=== PATIENT | female | born 1980 | race Caucasian/White ===

== ENCOUNTER 2018-12-28 11:10 | Day surgery (SDC) | payer SELFPAY ==
[2018-12-28] VITALS (7 sets, daily range): BP systolic 128–146; BP diastolic 67–111; PULSE 71–91; RESP 15–18; TEMP 36.1–36.6; O2SAT 98–100
--- NOTE | 2018-12-28 12:25 | ED.VIS.GEN ---
History of Present Illness Chief Complaint: Wound Check Informant: Patient Onset: Today Context: Sudden Onset Timing: Continuous Quality: Pain and swelling dorsum left hand Location: Dorsum left hand Current Severity: Moderate Maximum Severity: Severe Worsened by: Use of left hand Relieved by: Nothing Associated Symptoms: Pain Narrative: Patient is a 38-year-old [id number] woman who presents with laceration dorsum left hand. She was initially seen at [facility]. The wound was sutured. She states 5 minutes after leaving ER her hand swelled and she complains of severe pain. Denies paresthesia, anesthesia motors. Movement of her digits or hand causes increased pain. She is on no anticoagulant. She has no sniffing a past medical history. She does smoke. Recreational alcohol use. Immunization up-to-date. Prior similar symptoms: Yes Recent Illness/Hospitalization: Yes - Past Medical History (1) No significant past medical history Status: Acute Past Medical History - Allergies and Home Meds Allergies/Adverse Reactions: Allergies sulfamethoxazole [From Bactrim] Adverse Reaction (Verified 12/28/18 11:14) Nausea trimethoprim [From Bactrim] Adverse Reaction (Verified 12/28/18 11:14) Nausea Primary Care Physician: Care Physician,No Primary [Primary Care Provider] - Prior records reviewed: No Lives: Spouse/ Significant Other Smoking Status: Current every day smoker Alcohol: Occasional Drugs: None Review of Systems General: Denies: Chills, Fever, Malaise, Sweats Musculoskeletal: Reports: Swelling, Extremity Pain. Denies: Myalgias, Arthralgias, Neck pain, Back pain Skin: Reports: Wounds. Denies: Rash, Abscess Neurological: Denies: Weakness, Parasthesia, Numbness Psych: Denies: Depression, Anxiety Hematologic: Denies: Easy bruising, Easy bleeding Allergy: Denies: Uticaria, Swelling of the mouth Physical Exam Vital Signs/Narrative: Vital Signs Temp Pulse Resp BP Pulse Ox 12/28/18 11:11 97.9 F 91 18 141/111 H 98 Inital Vital Signs reviewed: Yes General: Well nourished, Well developed, Acute Distress Head: Normocephalic, Atraumatic Eyes: Perrl, EOMI. Negative for: Pale conjunctiva, Scleral icterus, - ENT: Moist mucous membranes, No rhinorrhea Neck: Supple, Nontender, No lymphadenopathy, No JVD Cardiovascular: Regular rate, Regular rhythm, No murmurs, Normal S1, Normal S2 Respiratory: No distress, CTA bilaterally, Chest nontender Abdomen: Soft, Nontender, Nondistended, Normal bowel sounds Extremities: No edema, Tenderness - The dorsum of the left hand is swollen and tenting. Capillary refill in the thumb and fingers is normal. Sensation is normal. She has pain with passive flexion or extension of the index, long and ring finger. The extensor and decide and extensor commonest tendon is functionally intact. Neurological: Alert, Oriented x3, Cranial nerves II-XII grossly intact, Normal Strength, Normal Sensation Psychological: Normal affect Diagnostic/Tx/Re-eval - Medical Decision Making Patient presents with pain secondary to injury initially cared for in [facility]. Concern patient has arterial bleeding from injury to intrinsic muscles. Contacted Dr. Vincent Davila. He informed me he is leaving [facility] for vacation with family. He recommended transfer to [facility] if no other orthopedic surgeon was available for repair. Case discussed with Dr.Joseph Roberts. Plan is to OR. Basic metabolic panel, CBC and test were ordered. He states he will perform general anesthesia. He was informed patient has not eaten since last night nor she had anything to drink. ED Disposition - Plan for ED Patient: Diagnosis: Laceration of hand with complication Referrals: Care Physician,No Primary [Primary Care Provider] -
--- NOTE | 2018-12-28 12:30 | ED.DCSUM_ITS ---
History of Present Illness Chief Complaint: Wound Check Informant: Patient Onset: Today Context: Sudden Onset Timing: Continuous Quality: Pain and swelling dorsum left hand Location: Dorsum left hand Current Severity: Moderate Maximum Severity: Severe Worsened by: Use of left hand Relieved by: Nothing Associated Symptoms: Pain Narrative: Patient is a 38-year-old [id number] woman who presents with laceration dorsum left hand. She was initially seen at [facility]. The wound was sutured. She states 5 minutes after leaving ER her hand swelled and she complains of severe pain. Denies paresthesia, anesthesia motors. Movement of her digits or hand causes increased pain. She is on no anticoagulant. She has no sniffing a past medical history. She does smoke. Recreational alcohol use. Immunization up-to-date. Prior similar symptoms: Yes Recent Illness/Hospitalization: Yes - Past Medical History (1) No significant past medical history Status: Acute Past Medical History - Allergies and Home Meds Allergies/Adverse Reactions: Allergies sulfamethoxazole [From Bactrim] Adverse Reaction (Verified 12/28/18 11:14) Nausea trimethoprim [From Bactrim] Adverse Reaction (Verified 12/28/18 11:14) Nausea Primary Care Physician: Care Physician,No Primary [Primary Care Provider] - Prior records reviewed: No Lives: Spouse/ Significant Other Smoking Status: Current every day smoker Alcohol: Occasional Drugs: None Review of Systems General: Denies: Chills, Fever, Malaise, Sweats Musculoskeletal: Reports: Swelling, Extremity Pain. Denies: Myalgias, Arthralgias, Neck pain, Back pain Skin: Reports: Wounds. Denies: Rash, Abscess Neurological: Denies: Weakness, Parasthesia, Numbness Psych: Denies: Depression, Anxiety Hematologic: Denies: Easy bruising, Easy bleeding Allergy: Denies: Uticaria, Swelling of the mouth Physical Exam Vital Signs/Narrative: Vital Signs Temp Pulse Resp BP Pulse Ox 12/28/18 11:11 97.9 F 91 18 141/111 H 98 Inital Vital Signs reviewed: Yes General: Well nourished, Well developed, Acute Distress Head: Normocephalic, Atraumatic Eyes: Perrl, EOMI. Negative for: Pale conjunctiva, Scleral icterus, - ENT: Moist mucous membranes, No rhinorrhea Neck: Supple, Nontender, No lymphadenopathy, No JVD Cardiovascular: Regular rate, Regular rhythm, No murmurs, Normal S1, Normal S2 Respiratory: No distress, CTA bilaterally, Chest nontender Abdomen: Soft, Nontender, Nondistended, Normal bowel sounds Extremities: No edema, Tenderness - The dorsum of the left hand is swollen and tenting. Capillary refill in the thumb and fingers is normal. Sensation is normal. She has pain with passive flexion or extension of the index, long and ring finger. The extensor and decide and extensor commonest tendon is functionally intact. Neurological: Alert, Oriented x3, Cranial nerves II-XII grossly intact, Normal Strength, Normal Sensation Psychological: Normal affect Diagnostic/Tx/Re-eval - Medical Decision Making Patient presents with pain secondary to injury initially cared for in [facility]. Concern patient has arterial bleeding from injury to intrinsic muscles. Contacted Dr. Vincent Davila. He informed me he is leaving [facility] for vacation with family. He recommended transfer to [facility] if no other orthopedic surgeon was available for repair. Case discussed with Dr.Joseph Roberts. Plan is to OR. Basic metabolic panel, CBC and test were ordered. He states he will perform general anesthesia. He was informed patient has not eaten since last night nor she had anything to drink. ED Disposition - Plan for ED Patient: Diagnosis: Laceration of hand with complication Referrals: Care Physician,No Primary [Primary Care Provider] -
[2018-12-28 13:09] LABS: Hematocrit 42.3 % (37-47); Hemoglobin 13.8 g/dl (12.0-15.0); Mean Corp Hgb Conc 32.6 g/gl (32-36); Mean Corpuscular Hgb 31.4 pg (27.0-32.0); Mean Corpuscular Volume 96.4 fL (81-99); Mean Platelet Vol. 9.7 fl (6.2-12.0); Platelet Count 326 K/mm3 (150-450); RBC Distribution Width CV 13.3 % (11.6-14.6); RBC Distribution Width SD 46.9 fl (35.1-43.9); Red Blood Count 4.39 M/mm3 (4.2-5.4); White Blood Count 10.7 K/mm3 (4.4-11.0)
[2018-12-28 13:10] LABS: Scan Indicated on CBC? Y/N NO
[2018-12-28 13:18] LABS: Anion Gap 4 (5-15); BUN 10 mg/dL (7-18); BUN/Creat Ratio 12.3 RATIO (10-20); Calcium,Total 8.6 mg/dL (8.5-10.1); Chloride 105 mmol/L (98-107); Creatinine, Serum 0.81 mg/dL (0.55-1.02); EST Glomerular Filtration Rate 85 mL/min (>60); Est Glom Filt Rate - Afr Amer 102 mL/min (>60); Estimated Creatinine Clearance 82.51 ml/min; Glucose 89 mg/dL (74-106); Potassium 3.5 mmol/L (3.5-5.1); Sodium Level 138 mmol/L (136-145)
--- NOTE | 2018-12-28 13:30 | PCM.HP.STD ---
History of Present Illness Date of Admission: 12/28/18 Chief Complaint: Laceration dorsum left hand The patient is a 38 year old F using a steak knife to remove his zip ties 8:30 AM slipped cut the back of her hand. Proceeded to [place] emergency room where primary closure was performed and ibuprofen was given patient then developed hematoma and drainage did return to the emergency room and a pressure dressing was applied she continued to have drainage and saturation of dressing and proceeded to [facility] emergency room. She is right-hand dominant. She is able to extend and flex the digits Past Medical History Past Medical History (Chronic Problems): Chronic Problems (Last Reviewed 12/28/18 @ 13:37 by DINA Riddle) Hypertension (Chronic) noncompliant with medications Medical History: Medical History (Last Reviewed 12/28/18 @ 13:37 by DINA Riddle) Smoking (Acute) F17.200 Nephrolithiasis (Acute) N20.0 Hypertension (Chronic) I10 noncompliant with medications Allergies sulfamethoxazole [From Bactrim] Adverse Reaction (Verified 12/28/18 11:14) Nausea trimethoprim [From Bactrim] Adverse Reaction (Verified 12/28/18 11:14) Nausea Home Medications: Ambulatory Orders Medication Instructions Recorded NK 12/28/18 Surgical History: Surgical History (Last Updated 12/28/18 @ 13:34 by DINA Riddle) delivery delivered (Acute) O82 x 3 Breast abscess N61.1 right Surgical History: - - x3 breast abscess right Lives: Spouse/ Significant Other Smoking Status: Current every day smoker Alcohol: Occasional Drugs: None Review of Systems Constitutional: Denies: Anorexia, Chills, Fever Cardiovascular: Denies: Chest Pain, Chest Pressure Respiratory: Denies: Shortness of Breath Gastrointestinal: Denies: Abdominal Pain VTE Information - Inpt Only VTE Present on Admission: No VTE Mechan Device Prophylaxis: SCD's Patient Problems: Active and Suspected Problems (Last Reviewed 12/28/18 @ 13:37 by DINA Riddle) No significant past medical history (Acute) Laceration of hand with complication (Acute) Smoking (Acute) delivery delivered (Acute) x 3 Nephrolithiasis (Acute) - Physical Exam General: Alert, Oriented x3, Cooperative Extremities: - - Pressure dressing left hand cool with slightly discolored fingers 3+ capillary refill likely secondary to tightness of pressure bandage. Intact sensation to light touch wiggling fingers Vital Signs Temp Pulse Resp BP Pulse Ox 97 F L 71 15 132/67 H 98 12/28/18 13:12 12/28/18 13:12 12/28/18 13:12 12/28/18 13:12 12/28/18 11:11 Oxygen Delivery Method Room Air Weight: 120 lb Body Mass Index (BMI) 20.0 Laboratory Tests Past 24 Hrs 12/28/18 12/28/18 12/28/18 12:55 12:55 12:55 WBC 10.7 RBC 4.39 Hgb 13.8 Hct 42.3 MCV 96.4 MCH 31.4 MCHC 32.6 RDW 13.3 RDW Differential 46.9 H Plt Count 326 MPV 9.7 Sodium 138 Potassium 3.5 Chloride 105 Carbon Dioxide 29.0 Anion Gap 4 L BUN 10 Creatinine 0.81 Estim Creat Clear Calc 82.51 Est GFR (MDRD) Af Amer 102 Est GFR (MDRD) Non-Af 85 BUN/Creatinine Ratio 12.3 Glucose 89 Calcium 8.6 Serum , Qual NEGATIVE Assessment/Plan All Active Problems (Last Reviewed 12/28/18 @ 13:37 by IDNA Riddle) No significant past medical history (Acute) Laceration of hand with complication (Acute) Smoking (Acute) delivery delivered (Acute) Nephrolithiasis (Acute) Laceration dorsum left hand with expanding hematoma Plan for irrigation debridement cauterization surgery as indicated exploration of extensor tendons Antibiotics 2 g Ancef preop
[2018-12-28 13:47] LABS: Internal QC Validated? YES +Cl - CLEAR BKGD; Pregnancy, Serum, hCG Quali. NEGATIVE Negative
[2018-12-28] MEDS: Cefazolin 2 GM in 0.9% Normal Saline 100 ML IV (14:01)
[2018-12-28] MEDS: Bupiv/Epi 0.25% 30 ML Vial (14:31)
--- NOTE | 2018-12-28 14:43 | DCINST_ITS ---
Discharge Diet: No Restrictions Additional Activity Instructions:: Strict ice and elevation for 72 hours. Do not lift grab or pull with left hand or upper extremity. Leave dressing on clean dry and intact until follow-up visit Monday. Finger range of motion is allowed. Call your doctor if you observe: Fever of 101 or Higher Allergies/Adverse Reactions: Allergies sulfamethoxazole [From Bactrim] Adverse Reaction (Verified 12/28/18 11:14) Nausea trimethoprim [From Bactrim] Adverse Reaction (Verified 12/28/18 11:14) Nausea Medications to take at Discharge Oxycodone HCl/Acetaminophen [Percocet 5/325] 1 - 2 tablet PO Q4H PRN PRN 5 Days #20 tablet 12/28/18 The following prescriptions were given: Oxycodone HCl/Acetaminophen [Percocet 5/325] 1 - 2 tablet PO Q4H PRN PRN 5 Days #20 tablet PRN Reason: Pain Primary Care Physician: Care Physician,No Primary [Primary Care Provider] - Test Results: Test results from this visit will be discussed in further detail at your follow- up appointment, if applicable. Please Follow Up With: Michele Arvizu, - Call for appointment When: 12/31/2018
--- NOTE | 2018-12-28 14:44 | PCM.OPRPT ---
Report of Operation Date of Procedure: 12/28/18 Description of Surgical Findings:: Preoperative diagnosis: Laceration dorsum left hand with hematoma Postoperative diagnosis: Same Procedure: Irrigation debridement and evacuation of hematoma and exploration of wound Anesthesia: General EBL: 5 cc Complications: None Condition: Stable to PACU Indication for procedure: This is a 38-year-old female patient who sustained a laceration to the dorsum of her left hand while using a steak knife to release zip ties she slipped with a knife sustaining the injury. This happened at 8:30 AM she did proceed to [place] emergency room where she had a primary closure and was put on ibuprofen. She had expanding hematoma with saturation of dressing return to the emergency room department and it pressure dressing was applied. She continued to have saturation and proceeded to [facility] emergency room the wound was explored by the emergency room physician was felt that cauterization would be required and I was consulted. risk benefits and alternatives were reviewed including risk of bleeding infection nerve, artery, bone, tissue damage, blood clot need for further surgery and continued pain. Procedure: Patient was met the preoperative holding area once again the operative extremity was identified by both patient and physician and was marked. Patient was brought back to the operating room in a wheeled cart and transferred to the operating table in the supine position. Anesthesia was started. A well-padded tourniquet was placed in the left upper extremity. Patient was prepped and draped in the usual sterile fashion and a timeout was called to ensure the proper patient procedure and extremity were being contemplated. The wound was explored there was hematoma which was evacuated the laceration was extended proximally approximately 1 cm and skin hooks were used and elevation of skin flaps and the wound was explored the extensor tendon to the in index finger was intact there was muscular damage involving the adductor pollicis the tourniquet was let down there was a bleeding vessel which was cauterized. The wound was thoroughly irrigated with a Betadine rinse followed by's sterile saline. A thrombin soaked 1 x 1 cm Gelfoam was placed in the wound the wound. Closure of the wound with 4-0 Prolene vertical mattress stitches. Dressing applied in the form of Xeroform 4 x 4's ABD web roll and an Prasanth wrap. All counts were correct no intraoperative complications patient tolerated the procedure well was transferred to the PACU in stable condition Type of Anesthesia:: General
--- NOTE | 2018-12-28 14:50 | OP.PCM_ITS ---
Report of Operation Date of Procedure: 12/28/18 Description of Surgical Findings:: Preoperative diagnosis: Laceration dorsum left hand with hematoma Postoperative diagnosis: Same Procedure: Irrigation debridement and evacuation of hematoma and exploration of wound Anesthesia: General EBL: 5 cc Complications: None Condition: Stable to PACU Indication for procedure: This is a 38-year-old female patient who sustained a laceration to the dorsum of her left hand while using a steak knife to release zip ties she slipped with a knife sustaining the injury. This happened at 8:30 AM she did proceed to [place] emergency room where she had a primary closure and was put on ibuprofen. She had expanding hematoma with saturation of dressing return to the emergency room department and it pressure dressing was applied. She continued to have saturation and proceeded to [facility] emergency room the wound was explored by the emergency room physician was felt that cauterization would be required and I was consulted. risk benefits and alternatives were reviewed including risk of bleeding infection nerve, artery, bone, tissue damage, blood clot need for further surgery and continued pain. Procedure: Patient was met the preoperative holding area once again the operative extremity was identified by both patient and physician and was marked. Patient was brought back to the operating room in a wheeled cart and transferred to the operating table in the supine position. Anesthesia was start ed. A well-padded tourniquet was placed in the left upper extremity. Patient was prepped and draped in the usual sterile fashion and a timeout was called to ensure the proper patient procedure and extremity were being contemplated. The wound was explored there was hematoma which was evacuated the laceration was extended proximally approximately 1 cm and skin hooks were used and elevation of skin flaps and the wound was explored the extensor tendon to the in index finger was intact there was muscular damage involving the adductor pollicis the tourniquet was let down there was a bleeding vessel which was cauterized. The wound was thoroughly irrigated with a Betadine rinse followed by's sterile saline. A thrombin soaked 1 x 1 cm Gelfoam was placed in the wound the wound. Closure of the wound with 4-0 Prolene vertical mattress stitches. Dressing applied in the form of Xeroform 4 x 4's ABD web roll and an Prasanth wrap. All counts were correct no intraoperative complications patient tolerated the procedure well was transferred to the PACU in stable condition Type of Anesthesia:: General
== END 2018-12-28 15:53 | disposition home or self-care (01) ==
LOC: ED 12:46 → SDC 13:11 → AC 13:15
PROVIDERS: Emergency Provider Emergency Medicine; Referring Provider Orthopaedic Surgery; Visit Provider Orthopaedic Surgery
PROC: (CPT 10140; principal; 2018-12-28 13:15)
DX: S61.412A Laceration without foreign body of left hand, initial encounter (principal); S60.222A Contusion of left hand, initial encounter; W26.0XXA Contact with knife, initial encounter; Y93.89 Activity, other specified; Y92.9 Unspecified place or not applicable; I10 Essential (primary) hypertension; F17.200 Nicotine dependence, unspecified, uncomplicated; Z91.14 Patient's other noncompliance with medication regimen
CPT/HCPCS: 10140; 80048; 84703; 85027; 99284; J7120; J2405

== ENCOUNTER 2023-02-26 12:58 | Emergency (ER) | payer SELFPAY ==
[2023-02-26 12:59] VITALS: BP 154/106; PULSE 103; RESP 18; TEMP 37.1; O2SAT 100; BMI 19.9
--- NOTE | 2023-02-26 13:40 | US_ITS ---
STUDY: ULTRASOUND TRANSVAGINAL CLINICAL: Female, 42 years old. vaginal bleeding TECHNIQUE: Transvaginal COMPARISON: None. FINDINGS: Normal uterine size measuring 9.7 x 6.4 x 5.5 cm in maximal craniocaudal dimension. 3.5 cm heterogeneous mass of the anterior body of uterus consistent with a submucosal fibroid.. Normal endometrial thickness measuring 5 mm. There are no endometrial masses, and there is no fluid in the endometrial cavity. Normal uterine cervix. Normal right ovary, measuring 2.7 x 2.2 x 2.3 cm. There are multiple follicles without a dominant cyst. Normal left ovary, measuring 4.5 x 2.3 x 2.9 cm. 2.5 cm dominant follicle the left ovary.. There is no free fluid in the pelvis. Polycystic ovary disease: No. US/Transvaginal Non- IMPRESSION: Enlarged fibroid uterus with a 3.5 cm submucosal fibroid in the anterior body the uterus. Electronically Signed: Skip Ireland MD at 16:06 EDT ,
[2023-02-26] MEDS: 0.9% Normal Saline 1,000 ML 1000 ML IV (14:01)
[2023-02-26] MEDS: Morphine 4 MG/ML Syringe IV (14:01)
[2023-02-26] MEDS: Ondansetron 4 MG/2 ML Vial IV (14:02)
[2023-02-26 14:24] LABS: Internal QC Validated? YES +Cl - CLEAR BKGD; Pregnancy, Serum, hCG Quali. NEGATIVE Negative
--- NOTE | 2023-02-26 14:31 | EKG12_ITS ---
Test Reason : SYNCOPE Blood Pressure : / mmHG Vent. Rate : 067 BPM Atrial Rate : 067 BPM P-R Int : 136 ms QRS Dur : 080 ms QT Int : 396 ms P-R-T Axes : 066 065 060 degrees QTc Int : 418 ms Normal sinus rhythm Normal ECG Confirmed by MIGUEL ÁNGEL RODARTE, REBECCA ([id number]), digital editor MYKE GUEVARA ([id number]) on 02/27/2023 1:26:03 PM Referred By: Confirmed By:REBECCA DEL ROSARIO MD
[2023-02-26 14:34] LABS: Bacteria 0 SEEN /hpf (None Seen); Mucous, Urine 0 SEEN /hpf (<or=2+); Squamous Epithelial Cells - UA 0 SEEN /hpf (5-10)
[2023-02-26 14:42] LABS: Color, Urine Yellow (Yellow); Glucose, Dipstick Normal (Normal); Ketone-Dipstick 5 mg/dl (Negative); Leukocyte Esterase-Dipstick 25 /ul (Negative); Nitrite-Dipstick Negative (Negative); Occult Blood-Urine 250 /ul (Negative); Protein-Dipstick 15 mg/dl (Negative); Specific Gravity, Urine 1.025 (1.002-1.030); Urine Bilirubin Dipstick Negative (Negative); Urine Clarity Clear (Clear); Urine Urobilinogen Normal (Normal)
[2023-02-26 14:46] LABS: Absolute Lymphocyte Count 0.97 X10^3/uL (0.83-4.51); Absolute Neutrophil Count 5.1 X10^3/uL (2.0-7.7); Basophil# 0.07 X10^3/uL; Eosinophil# 0.19 X10^3/uL; Eosinophils% 2.8 % (0-5); Hematocrit 37.9 % (37-47); Hemoglobin 11.8 g/dL (12.0-15.0); Lymphocyte # 0.97 X10^3/ul (0.83-4.51); Lymphocyte % 14.1 % (19-41); Mean Corp Hgb Conc 31.1 g/dL (32-36); Mean Corpuscular Hgb 30.6 pg (27.0-32.0); Mean Corpuscular Volume 98.2 fL (81-99); Mean Platelet Vol. 11.2 fl (6.2-12.0); Monocyte# 0.55 X10^3/uL; NRBC Flagged by Analyzer 0 % (0-5); Neutrophil # 5.07 X10^3/uL (2.7-7.7); Neutrophil % 73.8 % (47-70); Platelet Count 289 K/mm3 (150-450); RBC Distribution Width CV 13.2 % (11.6-14.6); RBC Distribution Width SD 47.5 fl (35.1-43.9); Red Blood Count 3.86 M/mm3 (4.2-5.4); White Blood Count 6.9 K/mm3 (4.4-11.0)
[2023-02-26 14:57] LABS: Red Blood Cells-Urine 5-10 SEEN /hpf (0-5); White Blood Cells 0-5 SEEN /hpf (0-5)
--- NOTE | 2023-02-26 15:20 | EDS_ITS ---
HPI HPI - Female History of Present Illness Chief Complaint: Abd Pain Narrative Narrative: 42-year-old female presenting with pelvic pain and vaginal bleeding which is excessive. She states she has a history of endometriosis. She has not had a technical healthcare consultant in a long time. She reports that she has not had pelvic pain until recently. She reports to me on Monday she was at work and started to feel excessive pain which made her pass out. She went to the ER in [place] and she was told she had a UTI and pyelonephritis as well as a kidney stone. She states that she did not have any urinary symptoms. She never really had any flank pain. She just had syncope from pelvic pain. She did have a CT performed which initially she was told was showing pyelonephritis, kidney stones. The patient returned back to the ER over there because she started to have more pain and the ER doctor that saw her then told her that the first person who saw her got it all wrong, and stated that she had uterine fibroids which is likely the cause of the bleeding. She has had heavy bleeding since Monday going through about a tampon an hour. Does not believe she is . No fever or chills. No urinary complaints. No flank pain. She states that she does not have a technical healthcare consultant anymore but was told to go to [place] to get a follow-up ultrasound at the end of the month and then when she gets that she is supposed to try to find a technical healthcare consultant. She reports to me that she does not have any insurance currently. Since the pain increased and she was having bleeding she came to [place] [facility] for assistance. PFSH PFSH Medical History Hypertension Nephrolithiasis Smoking Home Medications tramadol 50 mg tablet 50 mg PO Q8H PRN pain #25 tabs 01/02/19 [Rx Last Taken Unknown] norethindrone acetate 5 mg tablet (Aygestin) 5 mg PO DAILY #90 tabs 02/26/23 [Rx Last Taken Unknown] Allergy/AdvReac Type Severity Reaction Status Date / Time sulfamethoxazole AdvReac Nausea Verified 02/26/23 13:02 [From Bactrim] trimethoprim [From Bactrim] AdvReac Nausea Verified 02/26/23 13:02 Family History Grandmother Cervical cancer Mother Cervical cancer Other Ovarian cancer Surgical History Breast abscess delivery delivered Social History Smoking Status: Current every day smoker tobacco type: cigarettes ROS ROS ED Constitutional Constitutional ED: Denies chills, fever(s) or sweats Eyes Eyes: Denies blurry vision or change in vision ENT ENT ED: Denies ear pain or sore throat Cardiovascular Cardiovascular: Denies chest pain, palpitations or racing heartbeat Respiratory/Chest Respiratory/Chest: Denies cough, dyspnea or sputum Gastrointestinal Gastrointestinal: Reports abdominal pain; Denies constipation, diarrhea, nausea or vomiting Genitourinary Genitourinary ED: Reports other Details: Excessive vaginal bleeding ; Denies dysuria, hematuria or urinary frequency Musculoskeletal Musculoskeletal: Denies arthralgias, myalgias or neck pain Integumentary Denies abscess, Abrasions or rash Neurologic Neurologic: Denies headache(s), paresthesias or weakness Psychiatric Psychiatric: Denies anxiety, depression, suicidal ideation or suicidal thoughts Endocrine Endocrinology: Denies polydipsia or polyuria EXAM Physical Exam Const Vital Signs: 02/26/23 12:59 02/26/23 16:12 Temperature 98.7 F Temperature Source Temporal Pulse Rate 103 H Pulse Rate [Lying] 100 Pulse Rate [Sitting (for 1 minute prior to obtaining)] 62 Pulse Rate [Standing (for 1 minute prior to obtaining)] 63 Respiratory Rate 18 Blood Pressure 154/106 H Blood Pressure [Lying] 157/100 H Blood Pressure [Sitting (for 1 minute prior to obtaining)] 146/107 H Blood Pressure [Standing (for 1 minute prior to obtaining)] 164/100 H Blood Pressure Mean 122 Blood Pressure Mean [Lying] 119 Blood Pressure Mean [Sitting (for 1 minute prior to obtaining)] 120 Blood Pressure Mean [Standing (for 1 minute prior to obtaining)] 121 Pulse Ox 100 Oxygen Delivery Method Room Air General Appearance ED: NAD HEENT Reports moist mucous membranes Eyes PERRL and EOMs intact bilaterally General Eye ED: Negative for pale conjunctiva Chest Wall inspection of chest normal Resp normal respiratory effort Cardio regular rate and regular rhythm GI Palpation: tender suprapubic Back/Spine no CVA tenderness Extremity normal to inspection Neuro oriented x3 and CN's II-XII intact bilaterally Sensorium / Orientation: alert Motor Exam: strength 5/5 throughout Psych mental status grossly normal Skin no rashes or lesions noted MDM MDM MDM Narrative Medical decision making narrative: Patient presenting with dysfunctional uterine bleeding. She was told that he had initially had pyelonephritis and a kidney stone and secondarily was told that she had uterine fibroids based on CT. On both visits to her previous ER visit there was no labs drawn. There is no urinalysis tested. No test. Patient presenting today with pelvic pain and dysfunctional uterine bleeding. Initially she stated she had syncope secondary to the pain. Differe ntial includes dehydration, anemia, dysfunctional uterine bleeding, dysrhythmia, electrolyte abnormalities, dehydration, endometriosis, UTI, pyelonephritis. Patient was typed and screened. Orthostatic negative. EKG was obtained which shows a normal sinus rhythm with a ventricular rate of 67 bpm without sign of ischemic change or ectopy. She was given morphine, Zofran, IV fluids. High-sensitivity troponin will be obtained. CBC was obtained to assess white blood cell count, hemoglobin, platelets. This does show a hemoglobin 11.8 with the last comparison being in 2019 which was about 2 points higher. Renal function and electrolytes within normal limits. LFTs are normal. Urinalysis negative for infection does have blood, however the patient has vaginal bleeding which is likely the source this does not have any flank pain or CVA tenderness. hCG negative. Transvaginal ultrasound shows 3.5 cm uterine fibroid the submucosal layer. This was discussed with the on-call twister doffer for Dr. Lawton. She recommended putting her on Aygestin 5 mg p.o. 3 times daily until the bleeding stops and then twice daily after this for a month. She states that they do offer self-pay packages to patient's and they do try to work with them if they would have insurance. She recommended calling the office to try to help get her seen. Patient will take the Aygestin. She is discharged home in stable condition. Return precautions discussed. Impression: 1. 3.5 cm uterine fibroid 2. Dysfunctional uterine bleeding 3. History of syncope 4. Anemia Lab Data Labs: Laboratory Results - last 24 hr 02/26/23 02/26/23 02/26/23 14:06 14:27 15:24 WBC 6.9 RBC 3.86 L Hgb 11.8 L Hct 37.9 MCV 98.2 MCH 30.6 MCHC 31.1 L RDW Std Deviation 47.5 H RDW Coeff of [place] 13.2 Plt Count 289 MPV 11.2 Immature Gran % (Auto) 0.300 Neut % (Auto) 73.8 H Lymph % (Auto) 14.1 L [place] % (Auto) 8.0 Eos % (Auto) 2.8 Baso % (Auto) 1.0 Absolute Neuts (auto) 5.1 Absolute Lymphs (auto) 0.97 Nucleated RBC % 0 Sodium Cancelled 139 Potassium Cancelled 3.9 Chloride Cancelled 108 H Carbon Dioxide Cancelled 26.0 Anion Gap Cancelled 5 BUN Cancelled 17 Creatinine Cancelled 0.69 Estim Creat Clear Calc Cancelled 95.69 Est GFR (MDRD) Af Amer Cancelled 120 Est GFR (MDRD) Non-Af Cancelled 99 BUN/Creatinine Ratio Cancelled 24.5 H Glucose Cancelled 84 Calcium Cancelled 8.4 L Total Bilirubin Cancelled 0.60 AST Cancelled 14 L ALT Cancelled 18 Alkaline Phosphatase Cancelled 33 L Troponin I High Sens Cancelled 4 Total Protein Cancelled 6.8 Albumin Cancelled 3.6 Globulin Cancelled 3.2 Albumin/Globulin Ratio Cancelled 1.1 Serum , Qual NEGATIVE Urine Color Yellow Urine Clarity Clear Urine pH 5.0 Ur Specific [place] 1.025 Urine Protein 15 H Urine Glucose (UA) Normal Urine Ketones 5 H Urine Occult Blood 250 H Urine Nitrite Negative Urine Bilirubin Negative Urine Urobilinogen Normal Ur Leukocyte Esterase 25 H Urine RBC 5-10 SEEN Urine WBC 0-5 SEEN Ur Squamous Epith Cells 0 SEEN Urine Bacteria 0 SEEN Urine Mucus 0 SEEN Blood Type A POSITIVE Antibody Screen NEGATIVE Radiography Diagnostic Testing: Clinical Impression(s) from Imaging Studies Transvaginal US 02/26/23 13:40 IMPRESSION: Enlarged fibroid uterus with a 3.5 cm submucosal fibroid in the anterior body the uterus. Electronically Signed: Skip Ireland MD at 16:06 EDT , Discharge Plan Triage Chief Complaint: Abd Pain Other Complaint: Vag Bld, Preg ED Provider: Moo Alicia Dx/Rx/DC Orders Instructions: ED Dysfunctional Uterine Bleeding, ED Uterine Fibroids Prescriptions: New norethindrone acetate [Aygestin] 5 mg tablet 5 mg PO DAILY Qty: 90 0RF Rx Instructions: 5 mg p.o. 3 times daily until uterine bleeding stops, then twice daily x1 month No Action tramadol 50 mg tablet 50 mg PO Q8H PRN (Reason: pain) Qty: 25 0RF Rx Instructions: 1-2 tabs po Q 8hrs prn pain Primary Care Provider: Azar Hernandez Referrals: Azar Hernandez MD [Primary Care Provider] - Fatuma Lawton MD [Med Staff - Active Staff] - As soon as possible (Call the office to see about the self-pay packages.) Disposition Disposition: Home, Self Care
[2023-02-26 15:49] LABS: ALB/GLOB Ratio 1.1 RATIO (0.9-2.4); AST(SGOT) 14 U/L (15-37); Alanine Aminotransfer ALT/SGPT 18 U/L (13-56); Albumin, Serum 3.6 g/dL (3.2-5.0); Alkaline Phosphatase 33 U/L (45-117); Anion Gap 5 (5-15); BUN 17 mg/dL (7-18); BUN/Creat Ratio 24.5 RATIO (10-20); Calcium,Total 8.4 mg/dL (8.5-10.1); Chloride 108 mmol/L (98-107); Creatinine, Serum 0.69 mg/dL (0.55-1.02); EST Glomerular Filtration Rate 99 mL/min (>60); Est Glom Filt Rate - Afr Amer 120 mL/min (>60); Estimated Creatinine Clearance 95.69 ml/min; Globulin 3.2 g/dL (2.2-4.2); Glucose 84 mg/dL (74-106); Potassium 3.9 mmol/L (3.5-5.1); Protein, Total 6.8 g/dL (6.4-8.2); Sodium Level 139 mmol/L (136-145); Troponin-I HS 4 pg/mL (3.0-54.0)
[2023-02-26 16:12] VITALS: BP 146/107; BP 157/100; BP 164/100; PULSE 100; PULSE 62; PULSE 63
== END 2023-02-26 16:33 | disposition home or self-care (01) ==
PROVIDERS: Emergency Provider Student in an Organized Health Care Education/Training Program; PCP Family Medicine; Visit Provider Student in an Organized Health Care Education/Training Program
DX: D25.9 Leiomyoma of uterus, unspecified (principal); D64.9 Anemia, unspecified; F17.210 Nicotine dependence, cigarettes, uncomplicated; I10 Essential (primary) hypertension; R55 Syncope and collapse; N93.8 Other specified abnormal uterine and vaginal bleeding; Z87.42 Personal history of other diseases of the female genital tract
CPT/HCPCS: 76830; 80053; 81001; 84484; 84703; 85025; 86850; 86900; 86901; 93005; 96361; 96374; 96375; 99284; J7030; A4216; J2405

== ENCOUNTER → 2023-04-05 | Outpatient (CLI) | payer SELFPAY ==
--- NOTE | 2023-04-05 | EMB_PTH ---
PATIENT: JOSH CALLE LOC: [facility] U#:[id number] AGE/SX: 42/F ROOM: RE04/05/[address]: Dr. Pearl Munoz DO : 1980 BED: DIS: 04/05/2023 SPEC #: [id number] RECD: 04/05/23 13:28 STATUS: GEREMIAS VINCENT #: [id number] PROMISE: 04/05/23 00:[address]: Pearl Munoz DEPT: SURGICAL PATHOLOGY RECD BY: Amando Blackman ENTERED: 04/05/23 13:29 SP TYPE: ENDOM BX/C JEROME DR: Dr. Azar Hernandez MD Tissues: Endometrium, NOS Procedures: Surgery Specimen Level IV HEADER OPERATION: Endometrial biopsy PRE-OP DIAGNOSIS: Menorrhagia TISSUE SUBMITTED: Endometrial lining MICROSCOPIC DIAGNOSIS Endometrial biopsy: Secretory endometrium. SJ:marta 04/06/2023 MICROSCOPIC DESCRIPTION Slides are reviewed. GROSS DESCRIPTION Received is one container labeled with the patient's name and not further designated. The specimen consists of multiple irregular fragments of pink soft tissue that in aggregate measure 2.0 x 1.0 x 0.1 cm. The specimen is totally submitted in one cassette. / SJ:marta 04/05/2023 TC:4 CPT: 34711
[2023-04-10 09:07] LABS: HPV APTIMA, High Risk Negative (Negative)
== END | disposition home or self-care (01) ==
PROVIDERS: PCP Family Medicine; Referring Provider Obstetrics & Gynecology; Visit Provider Obstetrics & Gynecology
DX: N92.0 Excessive and frequent menstruation with regular cycle (principal)
CPT/HCPCS: 87624; 88175; 88305; G0145

== ENCOUNTER → 2024-02-07 | Outpatient (CLI) | payer SELFPAY ==
--- NOTE | 2024-02-07 14:31 | CT_ITS ---
STUDY: CT ABDOMEN AND PELVIS WITH CONTRAST REASON FOR EXAM: Female, 43 years old. chronic appendicitis?, RLQ pain RADIATION DOSAGE (If Supplied By Facility): CTDIvol = ( 9.21 ) mGy, DLP = ( 396.58 ) mGycm TECHNIQUE: Transaxial images were obtained from the dome of the diaphragm to the symphysis pubis with oral contrast. Oral and amp; IV Gastrografin and amp; 100mL Isovue-300 was administered. Sagittal and coronal images were reconstructed. Individualized dose optimization techniques were used for this CT. COMPARISON: Pelvic ultrasound earlier today FINDINGS: The visualized lung bases are unremarkable. The visualized portions of the heart are within normal limits. 1.5 cm round mass of decreased attenuation in the subcapsular anterior segment right lobe of liver with some peripheral globular enhancement likely consistent with a hemangioma. The gallbladder is contracted. Normal spleen. Normal pancreas. Normal bilateral adrenal glands. Normal right kidney. Normal left kidney. Normal visualized stomach. Normal small intestine. Normal colon. There is non-visualization of the appendix. Normal abdominal aorta. Normal inferior vena cava. Normal retroperitoneum. Normal urinary bladder. Normal abdominal wall. Normal osseous structures. CT/Abdomen/Pelvis WITH Contrast IMPRESSION: No acute abnormality. Electronically Signed: Skip Ireland MD at 17:52 EDT ,
--- NOTE | 2024-02-07 14:31 | US_ITS ---
STUDY: ULTRASOUND OF THE FEMALE PELVIS - COMPLETE REASON FOR EXAM: Female, 43 years old. RLQ pain LMP: January 26, 2024. TECHNIQUE: Transabdominal and Transvaginal TECHNICAL QUALITY: Adequate. COMPARISON: Comparison is made with prior study dated February 26, 2023. FINDINGS: The uterus is anteverted and is in a midline position. The uterus measures 9.4 cm x 5.5 cm x 4.5 cm. There is a Nabothian cyst of the cervix. The endometrium measures 7 mm in thickness, and is hyperechoic. There is no demonstrated endometrial mass. 2 fibroids are seen. The larger fibroid measures 3.6 cm x 3.9 cm x 2.9 cm. I.U.D. - The patient does not have an I.U.D. The right ovary is visualized. The right ovary measures 3.2 cm x 2.9 cm x 1.7 cm. Several follicles are seen. The largest measures 2 cm x 1.2 cm x 1.5 cm. There is no visualized right adnexal mass or complex lesion. There is normal arterial and normal venous vascularity. The left ovary is visualized. The left ovary measures 4.1 cm x 2.8 cm x 2.5 cm. There is a 2.4 cm x 2.1 cm x 2.2 cm left ovarian cyst. There is no visualized left adnexal mass or complex lesion. There is normal arterial and normal venous vascularity. There is no fluid in the cul-de-sac. The pre void volume of the bladder was 386 ml. US/Pelvic w/ Transvaginal IMPRESSION: Fibroid uterus. 2.4 cm x 2.1 centimeter by 2.2 cm left ovarian cyst. Electronically Signed: Joey Frank MD at 15:31 EDT ,
[2024-02-07 17:05] LABS: Absolute Lymphocyte Count 1.91 X10^3/uL (0.83-4.51); Absolute Neutrophil Count 6.8 X10^3/uL (2.0-7.7); Basophil# 0.07 X10^3/uL; Basophil% 0.7 % (0-1); Eosinophils% 1.1 % (0-5); Hematocrit 38.3 % (37-47); Hemoglobin 12.3 g/dL (12.0-15.0); Lymphocyte # 1.91 X10^3/ul (0.83-4.51); Lymphocyte % 20.1 % (19-41); Mean Corp Hgb Conc 32.1 g/dL (32-36); Mean Corpuscular Hgb 30.2 pg (27.0-32.0); Mean Corpuscular Volume 94.1 fL (81-99); Mean Platelet Vol. 10.3 fl (6.2-12.0); Monocyte# 0.62 X10^3/uL; Monocyte% 6.5 % (0-10); NRBC Flagged by Analyzer 0 % (0-5); Neutrophil # 6.77 X10^3/uL (2.7-7.7); Neutrophil % 71.2 % (47-70); Platelet Count 278 K/mm3 (150-450); RBC Distribution Width CV 12.6 % (11.6-14.6); RBC Distribution Width SD 43.6 fl (35.1-43.9); Red Blood Count 4.07 M/mm3 (4.2-5.4); White Blood Count 9.5 K/mm3 (4.4-11.0)
[2024-02-07 17:13] LABS: AST(SGOT) 17 U/L (15-37); Alanine Aminotransfer ALT/SGPT 22 U/L (13-56); Albumin, Serum 3.6 g/dL (3.2-5.0); Alkaline Phosphatase 37 U/L (45-117); Anion Gap 6 (5-15); BUN 13 mg/dL (7-18); BUN/Creat Ratio 17.8 RATIO (10-20); Calcium,Total 9.2 mg/dL (8.5-10.1); Chloride 102 mmol/L (98-107); Creatinine, Serum 0.73 mg/dL (0.55-1.02); EST Glomerular Filtration Rate 93 mL/min (>60); Est Glom Filt Rate - Afr Amer 113 mL/min (>60); Globulin 3.6 g/dL (2.2-4.2); Glucose 96 mg/dL (74-106); Potassium 4.1 mmol/L (3.5-5.1); Protein, Total 7.2 g/dL (6.4-8.2); Sodium Level 135 mmol/L (136-145)
[2024-02-08 15:42] LABS: CREATININE FINGERSTICK < 1.0 mg/dL (0.55-1.02); EGFR FINGERSTICK > 60.0000 mL/min (>60)
== END | disposition home or self-care (01) ==
PROVIDERS: PCP Family Medicine; Referring Provider Obstetrics & Gynecology; Visit Provider Obstetrics & Gynecology
DX: R10.31 Right lower quadrant pain (principal); D25.9 Leiomyoma of uterus, unspecified; K36 Other appendicitis
CPT/HCPCS: 36415; 74177; 76830; 76856; 80053; 85025; Q9967